=== PATIENT | female | born 1945 | race Caucasian/White ===

== ENCOUNTER → 2016-04-28 | Day surgery (SDC) | payer MEDICARE, OTHER ==
[~2016-04-28] MED LIST: ACETAMINOPHEN 1000 MG/100 ML VIAL IV ONE; ACETAMINOPHEN/HYDROcodone 325 MG/5 MG TAB ONE; ASPI1TAB69 PO; BENI40TA3 PO; BENI40TA30; BUPIVACAINE/EPINEPHRINE 0.25% PF 30 ML VIAL ONE; FLUT1SPR5 EACH NARE; FLUT1SPR9; ISOSULFAN BLUE 50 MG/5 ML VIAL SQ ONE; LACTATED RINGER'S 1000 ML INJ 1,000 ML ONE; LIDOCAINE 1%/EPINEPHrine 1:100,000 SOLN 30 ML VIAL ONE; MIDAZOLAM HCL 2 MG/2 ML VIAL ONE; NEXI40CA; NEXI40CA PO; NYST1000 SWISH-SWAL; NYST100010 SS; ONDANSETRON HCL 4 MG/2 ML VIAL IV PUSH ONE; PROPOFOL 200 MG/20 ML AMP IV ONE; SODIUM CHLOR 0.9% 250 ML BAG IV ONE; SODIUM CHLORIDE 0.9% INJ 10 ML ONE; VANCOMYCIN HCL 1000 MG VIAL ONE; VYTO10TA32; VYTO10TA8 PO; ceFAZolin INJ 1,000 MG VIAL ONE
--- NOTE | 2016-04-29 14:26 | MP ---
cc: CAMDEN AQUINO M.D., ZAFAR MD ZACHARIS, THEODOSSIS MD Corrected Copy: 06/05/16 DATE OF SURGERY: 04/28/2016. PREOPERATIVE DIAGNOSIS: 1. Soft tissue masses left antecubital fossa and base of right neck. 2. Invasive ductal carcinoma right breast. PROCEDURE PERFORMED: 1. Excision soft tissue mass left antecubital fossa 3 x 5 cm. 2. Excision soft tissue mass base of right neck 1 x 1 cm. 3. Excision sentinel lymph nodes right axilla x4. 4. Right simple mastectomy SURGEON: Camden Aquino MD. FAMILY PROGRAM SPECIALIST: Tre Cota MS-3. ESTIMATED BLOOD LOSS: 150 mL. FLUIDS: 950 mL crystalloid. COMPLICATIONS: None. DRAINS: Reliavac x1. SPECIMEN: Soft tissue masses x2 and right breast and sentinel lymph nodes x4 to pathology. DESCRIPTION OF THE PROCEDURE IN DETAIL: The patient was taken to the department of nuclear medicine where she underwent injection with technetium-99 sulfur colloid. She was taken back to the imaging center and was found to have areas that were marked by the radiologist. She was then taken to the operating room and placed on the operating table in the supine position. It should be noted that the patient had injection the afternoon before. The patient was then sterilely prepped and draped with the left antecubital fossa, right neck and right breast, all marked prior to going to the operating room and all of these were then prepped and draped. Time-out was taken confirming the correct patient, site and procedures to be performed. At this point, the left antecubital fossa was addressed first. A transverse incision was made directly over the mass. This was then dissected out with a combination of sharp dissection and electrocautery. A small antecubital vein was ligated and divided. The mass was completely excised and passed off the table. The wound was closed in two layers with interrupted 3-0 Vicryl suture and 5-0 PDS in a running subcuticular fashion. The wound was left open without a dressing until the end of the case. Attention was then turned to the base of the right neck. Incision was made superior to the supraclavicular region and dissection carried down to this area. Care was taken to avoid injuring the right external jugular vein. A small fatty pad of soft tissue was removed and this was submitted for specimen analysis. This wound was closed with interrupted 3-0 Vicryl suture and 5-0 PDS as well. Both wounds were left to air until the end of the procedure at which point Steri-Strips were placed on them. Attention was then turned to the breast. A Patey-type incision was then made including the nipple-areolar complex. The superior flap was created first and dissection was then carried out by pulling the breast downward off of the pectoralis muscle. The axilla was then examined and the Neoprobe was used to find the sentinel nodes in the axilla. A total of four lymph nodes were removed and passed off the table. When this had been completed, activity above background was not noted. All four nodes had substantial activity within them. The inferior skin flap was then created with electrocautery and the breast was then peeled in a medial to lateral fashion off of the chest wall. The specimen was then marked with silk sutures and passed off the table. The wound was then irrigated and all bleeding meticulously controlled with electrocautery. A Reliavac drain was brought out via an inferiorly based stab incision and fixed to the skin with a 3-0 nylon suture. The wound was then closed with interrupted 2-0 Vicryl suture and the skin itself closed with 5-0 PDS in a running subcuticular fashion. 30 mL of 0.25% Marcaine with epinephrine was injected into the drain and left to dwell for 30 minutes. The breast wound and the other soft tissue wounds were dressed with Steri-Strips as noted above. A Biopatch and Tegaderm was placed over the drain site. The patient was extubated and taken back to the recovery room in stable condition. Sponge, needle and instrument counts were reported be correct x2, the first time after the soft tissue masses were removed and the second time after the mastectomy was completed. The patient tolerated the procedure well. MD MADONNA Almazan/JCTashi /10:54 AM /2:16 PM CHRISTINA
== END | disposition home or self-care (01) ==
LOC: ESDC 06:42
PROVIDERS: ATTEND Surgery Trauma Surgery
DX: D05.11 Intraductal carcinoma in situ of right breast (principal); D17.22 Benign lipomatous neoplasm of skin and subcutaneous tissue of left arm; R22.1 Localized swelling, mass and lump, neck
CPT/HCPCS: 00300; 00400; 01610; 11421; 19303; 24071; 38525; 88305; 88307; 88309; J0131; J0690; J2250; J2405; J3010; J3370; J7050; J7120; 88304; Q9968

== ENCOUNTER → 2016-06-07 | Day surgery (SDC) | payer MEDICARE, OTHER ==
[~2016-06-07] MED LIST changes: -ACETAMINOPHEN 1000 MG/100 ML VIAL IV ONE; -ACETAMINOPHEN/HYDROcodone 325 MG/5 MG TAB ONE; +ACETAMINOPHEN/HYDROcodone 325 MG/5 MG TAB PO PRN; -BUPIVACAINE/EPINEPHRINE 0.25% PF 30 ML VIAL ONE; +CHLORHEXIDINE GLUCONATE 2 % 1 PACK (2 CLOTHS) TOPICAL PRN; +HEPARIN SODIUM - IV 10,000 UNITS/10 ML VIAL ONE; +INSULIN HUMAN REGULAR 1,000 UNITS/10 ML VIAL SQ PRN; -ISOSULFAN BLUE 50 MG/5 ML VIAL SQ ONE; -LACTATED RINGER'S 1000 ML INJ 1,000 ML ONE; +LACTATED RINGER'S 1000 ML IV PRN; +LIDOCAINE 1%/EPINEPHrine 1:100,000 SOLN 20 ML VIAL ONE; -LIDOCAINE 1%/EPINEPHrine 1:100,000 SOLN 30 ML VIAL ONE; +LIDOCAINE 1%/EPINEPHrine 1:100,000 SOLN 50 ML VIAL ONE; +METOPROLOL TARTRATE 25 MG TAB PO PRN; +MORPHINE SULFATE 4 MG/ML INJ IV PUSH PRN; -ONDANSETRON HCL 4 MG/2 ML VIAL IV PUSH ONE; +ONDANSETRON HCL 4 MG/2 ML VIAL IV PUSH PRN; +POVIDONE IODINE 5% (ANTISEPSIS KIT) 4 APPLICATIONS EACH NARE PRN; +SODIUM BICARBONATE 8.4% INJ 50 ML ONE; -SODIUM CHLOR 0.9% 250 ML BAG IV ONE; +SODIUM CHLORID 0.9% 500 ML IV PRN; +SODIUM CHLORIDE 0.9% 20 ML VIAL ONE; -SODIUM CHLORIDE 0.9% INJ 10 ML ONE; -VANCOMYCIN HCL 1000 MG VIAL ONE; +diphenhydrAMINE HCL 50 MG/ML VIAL IV ONE; +diphenhydrAMINE HCL 50 MG/ML VIAL ONE
[2016-06-07] MEDS: VANCOMYCIN HCL 1000 MG ON-CALL/NS 250 ML IV SCH ×4 (12:12→12:17)
[2016-06-07 12:13] VITALS: BP 169/85; PULSE 73; RESP 18; TEMP 98.5; O2SAT 98
--- NOTE | 2016-06-07 12:19 | EKG ---
Date Performed: 06/07/2016 Time Performed: 11:48:54 PTAGE: 71 years EKG: Sinus rhythm NORMAL ECG PREVIOUS TRACING : 03/03/2013 04.23 DOCTOR: Benjie Gutiérerz Interpretating Date/Time 06/07/2016 12:18:21
--- NOTE | 2016-06-07 15:39 | RADRPT ---
EXAM DATE/TIME: 06/07/2016 14:50 [facility] COMPARISON: CHEST SINGLE AP, March 02, 2013, 22:11. INDICATIONS : Infusaport insertion. MEDICAL HISTORY : carcinoma of breast SURGICAL HISTORY : Mastectomy, left. ENCOUNTER: Initial ACUITY: 1 day PAIN SCORE: 7/10 LOCATION: Right chest pain FINDINGS: Iiagtm-s-Vuay is in good position on the right without pneumothorax. The heart and pulmonary vascular ity are normal. The portion of the bony skeleton visualized is unremarkable. CONCLUSION: Support good position without pneumothorax. Ronny Alegre MD FACR on June 07, 2016 at 15:36 Board Certified Radiologist. This report was verified electronically.
[2016-06-07 16:00] VITALS: BP 161/78; PULSE 84; RESP 16; TEMP 97.9; O2SAT 97
--- NOTE | 2016-06-09 16:03 | MP ---
cc: MARGARITA AQUINO M.D., ZAFAR MD DATE OF SURGERY: 06/07/2016. PREOPERATIVE DIAGNOSIS: Invasive ductal carcinoma with need for IV chemotherapy. POSTOPERATIVE DIAGNOSIS: Invasive ductal carcinoma with need for IV chemotherapy. OPERATIVE PROCEDURE PERFORMED: Gqlyax-V-Fvnp placement with intraoperative use of fluoroscopy. SURGEON: Margarita Aquino MD. ANESTHESIA TIVA. ESTIMATED BLOOD LOSS: Less than 10 mL. FLUIDS: 600 mL crystalloid. COMPLICATIONS: None. DRAINS: None. SPECIMEN: None. DESCRIPTION OF THE PROCEDURE IN DETAIL: The patient was taken to the operating room and placed on the operating table in the supine position. After an adequate level of IV sedation was begun, the chest and neck were prepped and draped bilaterally. Time-out was taken confirming correct patient, site and procedure to be performed. Skin and subcutaneous tissue on the left subclavian region was infiltrated with local anesthetic. Multiple attempts were unsuccessful in accessing the left subclavian vein. At this point, the right side was infiltrated with local anesthetic and the right subclavian vein was accessed on the very first attempt. A guidewire was passed and seen under fluoroscopy to pass into the superior vena cava. A port pocket was then created inferior to this by infiltrating with local anesthetic, incising the skin, and creating a pocket with electrocautery. The catheter was brought through a short tunnel between the port pocket site and the percutaneous puncture site. An introducer and sheath were then passed over the guidewire and seen to smoothly course into the superior vena cava under fluoroscopy. The guidewire and introducer were removed and the catheter passed on the sheath. The sheath was peeled away the catheter withdrawn to a level such that the tip was in the superior vena cava. The catheter was then trimmed to size, attached the port and the hub was snapped in place. The port was fixed to the chest wall at two points with 2-0 Prolene suture. The port pocket was inspected and seen to be clean and dry. The percutaneous puncture site and port pocket were closed with interrupted 3-0 Vicryl suture and the skin closed at the port pocket with 5-0 PDS in a running subcuticular fashion. Both wounds were dressed with Steri-Strips. The patient was taken back to her room in stable condition. Sponge and needle counts were reported to be correct. Chest x-ray was ordered and is pending at this time. The patient tolerated the procedure well. MD MADONNA Almazan/BAKARI /3:56 PM /3:56 PM
== END | disposition home or self-care (01) ==
LOC: HSDC 11:11
PROVIDERS: ATTEND Surgery Trauma Surgery
DX: Z45.2 Encounter for adjustment and management of vascular access device (principal); D05.11 Intraductal carcinoma in situ of right breast; I10 Essential (primary) hypertension
CPT/HCPCS: 00532; 36561; 71010; 77001; 93005; C1788; J1200; J1644; J2250; J3010; J3370; J7050; J7120; J0690

== ENCOUNTER 2016-06-09 12:15 | Inpatient (IN) | payer MEDICARE, OTHER ==
[~2016-06-09] VITALS: Ht 157.5 cm; Wt 72.2 kg
[~2016-06-09 12:15] MED LIST changes: -ACETAMINOPHEN/HYDROcodone 325 MG/5 MG TAB PO PRN; -BENI40TA30; -CHLORHEXIDINE GLUCONATE 2 % 1 PACK (2 CLOTHS) TOPICAL PRN; -FLUT1SPR9; -HEPARIN SODIUM - IV 10,000 UNITS/10 ML VIAL ONE; -INSULIN HUMAN REGULAR 1,000 UNITS/10 ML VIAL SQ PRN; -LACTATED RINGER'S 1000 ML IV PRN; -LIDOCAINE 1%/EPINEPHrine 1:100,000 SOLN 20 ML VIAL ONE; -LIDOCAINE 1%/EPINEPHrine 1:100,000 SOLN 50 ML VIAL ONE; -METOPROLOL TARTRATE 25 MG TAB PO PRN; -MIDAZOLAM HCL 2 MG/2 ML VIAL ONE; -MORPHINE SULFATE 4 MG/ML INJ IV PUSH PRN; -NEXI40CA; -NYST1000 SWISH-SWAL; -NYST100010 SS; -ONDANSETRON HCL 4 MG/2 ML VIAL IV PUSH PRN; -POVIDONE IODINE 5% (ANTISEPSIS KIT) 4 APPLICATIONS EACH NARE PRN; -PROPOFOL 200 MG/20 ML AMP IV ONE; -SODIUM BICARBONATE 8.4% INJ 50 ML ONE; -SODIUM CHLORID 0.9% 500 ML IV PRN; -SODIUM CHLORIDE 0.9% 20 ML VIAL ONE; -VYTO10TA32; -ceFAZolin INJ 1,000 MG VIAL ONE; -diphenhydrAMINE HCL 50 MG/ML VIAL IV ONE; -diphenhydrAMINE HCL 50 MG/ML VIAL ONE
[2016-06-09 12:19] VITALS: BP 201/110; PULSE 88; RESP 24; TEMP 98.2; O2SAT 95
[2016-06-09 12:28] VITALS: PULSE 92; RESP 26; TEMP 97.9; O2SAT 92
[2016-06-09] MEDS ORDERED: MIDAZOLAM HCL 5 MG/ML VIAL (1 ML) ONE (12:42)
[2016-06-09] MEDS ORDERED: MIDAZOLAM HCL 5 MG/5 ML VIAL IV PUSH ONE ×2 (12:45)
[2016-06-09] MEDS ORDERED: LIDOCAINE 2%/EPINEPHrine 1:100,000 30ML MDV INFIL ONE (12:45)
--- NOTE | 2016-06-09 12:46 | PD ---
HPI Chief Complaint: Respiratory Symptoms Time Seen by Provider: 12:35 Travel History International Travel<30 days: No Contact w/Intl Traveler<30days: No Traveled to known affect area: No History of Present Illness HPI This is a 71-year-old female with a history of breast cancer, presents here for admission. The patient had a port placed yesterday. They initially tried with port in the left upper chest however were unsuccessful and placed on the right. Post procedure chest x-ray showed no pneumothorax at the time. The patient told her daughter that she was having difficulty breathing. The daughter who is a public affairs director listen to her lungs and found that she had diminished lung sounds in the left side. The patient was sent from urgent CT of the chest. Showed a large pneumothorax and left side. The patient was sent here by Dr. Aquino for chest tube placement and admission. PFSH Past Medical History Heart Rhythm Problems: No Cancer: Yes (L BREAST) Cardiac Catheterization: No Cardiovascular Problems: Yes (HTN) High Cholesterol: Yes Chemotherapy: Yes Congestive Heart Failure: No Diabetes: No Diminished Hearing: No Endocrine: No Gastrointestinal Disorders: Yes (REFLUX) GERD: Yes Genitourinary: No Hepatitis: No Hiatal Hernia: No Hypertension: Yes Immune Disorder: No Musculoskeletal: No Neurologic: No Psychiatric: No Reproductive: No Respiratory: Yes Immunizations Current: Yes Thyroid Disease: No Menopausal: Yes Past Surgical History Abdominal Surgery: Yes (APPENDECTOMY) AICD: No Appendectomy: Yes Cardiac Surgery: No Coronary Artery Bypass Graft: No Ear Surgery: No Endocrine Surgery: No Eye Surgery: No Genitourinary Surgery: No Gynecologic Surgery: No Joint Replacement: No Mastectomy: Yes Oral Surgery: No Pacemaker: No Thoracic Surgery: Yes Other Surgery: Yes Social History Alcohol Use: No Tobacco Use: No Substance Use: No Allergies-Medications (Allergen,Severity, Reaction): Coded Allergies: Penicillin (Verified Allergy, Intermediate, thrush, 06/07/16) Reported Meds & Prescriptions Reported Meds & Active Scripts Active Reported Aspirin 81 Mg Tabdr 81 Mg PO DAILY Benicar (Olmesartan) 40 Mg Tab 40 Mg PO DAILY Flonase Nasal [place] (Fluticasone Nasal [place]) 50 Mcg/Act [place] 50 Mcg EACH NARE BID Vytorin (Ezetimibe-Simvastatin) 10-20 Mg Tab 10-20 Tab PO HS Nexium (Esomeprazole DR) 40 Mg Capdr 40 Mg PO DAILY Review of Systems Except as stated in HPI: all other systems reviewed are Neg Cardiovascular: Positive: Chest Pain or Discomfort (left sided chest), No: Palpitations ( pain with inspiration) Respiratory: Positive: Shortness of Breath, No: Cough Gastrointestinal: No: Nausea, Abdominal Pain Neurologic: No: Weakness, Headache Physical Exam Narrative GENERAL: Well-nourished, well-developed patient. SKIN: Focused skin assessment warm/dry. HEAD: Normocephalic/atraumatic. EYES: No scleral icterus. No injection or drainage. NECK: Supple, trachea midline. CARDIOVASCULAR: Regular rate and rhythm without murmurs, gallops, or rubs. RESPIRATORY: Her sounds diminished on the left side. Right side had good breath sounds. GASTROINTESTINAL: Abdomen soft, non-tender, nondistended. MUSCULOSKELETAL: No cyanosis, or edema. Patient is status post lymph node ectomy in the bilateral axillary regions. Wounds appear clean dry and intact. NEUROLOGICAL: Awake and alert. Cranial nerves II through XII intact. Motor grossly within normal limits. Five out of 5 muscle strength in all muscle groups. Normal speech. Data Data Last Documented VS Vital Signs Date Time Temp Pulse Resp B/P Pulse Ox O2 Delivery O2 Flow Rate FiO2 06/09/16 12:28 97.9 92 26 92 06/09/16 12:19 201/110 Orders Lidocai-Epi 2%-1:100,000 Inj (Xylocaine- (06/09/16 12:45) Midazolam Inj (Versed Inj) (06/09/16 12:45) Admit Order (Ed Use Only) (06/09/16 12:40) Midazolam Inj (Versed Inj) (06/09/16 12:45) Mri Brain W&W/O Contrast (06/09/16 12:42) Midazolam Inj (Versed Inj) (06/09/16 12:42) MDM Medical Decision Making Medical Screen Exam Complete: Yes Emergency Medical Condition: Yes Differential Diagnosis Pneumothorax versus hemothorax versus pneumonia Narrative Course 71 year-old female with a breast cancer history, who is being prepared for chemotherapy, who presents with shortness of breath after having a port placed. The patient was noted to have a large left sided pneumothorax. She was sent here by Dr. Aquino who met her here and placed a left sided chest tube. The patient be admitted to the hospital. Dr. Aquino will be the admitting physician. Dr. Aquino successfully place the tube with no complications. Diagnosis Primary Impression: left sided pneumothorax Additional Impression: History of breast cancer Admitting Information Admitting Physician Requests: Admit Ishan Colindres MD Jun 09, 2016 12:46
[2016-06-09 13:00] VITALS: BP 124/57; PULSE 80; RESP 16; O2SAT 99
[2016-06-09] MEDS ORDERED: MORPHINE SULFATE 4 MG/ML INJ IV PUSH ONE (13:00)
[2016-06-09] MEDS ORDERED: NALOXONE HCL 0.4 MG/ML AMP IV PRN (13:15)
[2016-06-09] MEDS ORDERED: ACETAMINOPHEN/HYDROcodone 325 MG/5 MG TAB PO PRN (13:15)
[2016-06-09] MEDS ORDERED: ONDANSETRON HCL 4 MG/2 ML VIAL IV PRN (13:15)
[2016-06-09] MEDS ORDERED: Post-op Orders (for Pharmacy) MISC XX ONE (13:15)
[2016-06-09] MEDS ORDERED: SODIUM CHLORIDE 0.9% FLUSH 5 ML FLUSH IVF PRN (13:15)
[2016-06-09] MEDS ORDERED: MORPHINE SULFATE 4 MG/ML INJ IV PUSH PRN (13:15)
[2016-06-09] MEDS ORDERED: diphenhydrAMINE HCL 25 MG CAP PO PRN (13:15)
[2016-06-09] MEDS ORDERED: KETOROLAC TROMETHAMINE 30 MG/ML (IVP) VIAL IVP PRN (13:15)
[2016-06-09] MEDS: SODIUM CHLOR 0.9% 1000 ML INJ 1,000 ML IV SCH ×2 (13:32→23:45)
[2016-06-09] MEDS: ACETAMINOPHEN/HYDROcodone 325 MG/5 MG TAB PO PRN (13:41)
--- NOTE | 2016-06-09 14:17 | RADRPT ---
EXAM DATE/TIME: 06/09/2016 13:19 [facility] COMPARISON: FLUOROSCOPY FOR CV CATH PLCMT, June 07, 2016, 0:00. CHEST SINGLE AP, June 07, 2016, 14:50. INDICATIONS : Shortness of breath post port placement two days ago, chest tube placement. MEDICAL HISTORY : Carcinoma, breast. SURGICAL HISTORY : Left mastectomy ENCOUNTER: Subsequent ACUITY: 2 days PAIN SCORE: 7/10 LOCATION: Left upper chest FINDINGS: Chest tube is in place on the left without pneumothorax. Line is in good position on the right. Min imal parenchymal changes are seen in the left base CONCLUSION: There is no pneumothorax with chest tube placement in the left. Ronny Alegre MD FACR on June 09, 2016 at 13:38 Board Certified Radiologist. This report was verified electronically.
--- NOTE | 2016-06-09 14:28 | PD.PN.STU ---
Subjective Remarks 71 year-old [place] female with hx of surgical port placement for breast malignancy X 2 days ago presented to the [facility] ED with progressive shortness of breath, chest pain associated with deep breathing, and pallor. During port placement, there was an initial unsuccessful attempt to place the port in the left subclavicular region, which was followed by a successful right subclavicular port placement. Chest x-ray following the procedure was unremarkable. The patient's daughter has medical training and was able to detect decreased breath sounds in her mother's left upper lobe today. The patient contacted her GI physician, Dr. Yeh, who ordered a chest CT. Chest CT showed a left-sided pneumothorax, which prompted consultation of the patient' s general surgeon, Dr. Aquino. Past medical history is significant for left breast cancer X 6 years ago followed by unilateral left mastectomy. Right breast malignancy was diagnosed in April 2016, followed by right mastectomy X 1 month ago. Loni Costa, MS3 Objective Vitals Vital Signs Date Time Temp Pulse Resp B/P Pulse Ox O2 Delivery O2 Flow Rate FiO2 06/09/16 12:28 97.9 92 26 92 06/09/16 12:19 98.2 88 24 201/[address] reveals left pneumothorax Objective Remarks The patient appears to be an elderly woman in significant distress. She has increased work of breathing, pallor, severe pain, and decreased breath sounds in the left upper lobe. Procedures A small-bore catheter was inserted into the pleural space and attached to a negative pressure suction device. Medications and IVs Versed IV was administered in 2 pushed doses of 2.5 mg and 1 dose of 5 mg for anxiety Lidocaine-Epinephrine 2% 30 mL for pain at catheter site X 1. Morphine 4 mg IV push for pleuritic pain X 1. Toradol inj 30 mg q6h prn for pain. [place] 5/325 po q4h prn for pain. Morphine 2 mg IV q30min prn for severe pain Odansetron 4 mg IV q4h prn for nausea Benadryl 25 mg po q6h prn for itching Sodium chloride 1000 ml @ 100ml/hr IV q10h A/P Assessment and Plan The patient was likely suffering an iatrogenic left-sided pneumothorax secondary to port placement for chemotherapy administration. Small-bore needle catheterization was performed and attached to a negative pressure suction device without any complications. The proper site of entry was confirmed via visualized air bubbles, increased air movement on lung auscultation, and chest x-ray, which reveals complete resolution of the pneumothorax. The patient is now stable and breathing well without any supplemental oxygen. The etiology of the pneumothorax, along with the procedure and expectations were discussed with the patient and her family. The patient will be admitted to the hospital to assess for further complications over the nest 24-48 hours. The patient was advised to call Dr. Solis's office following hospital discharge to plan for chemotherapy treatment initiation shortly thereafter. The patient, her son, and her daughter understand the patient's condition and are in complete agreement with the plan of care. Discharge Planning The patient will be discharged home. Loni Costa M3 Jun 09, 2016 14:28
[2016-06-09 15:14] VITALS: BP 112/60; PULSE 80; RESP 18; O2SAT 98
[2016-06-09 15:40] LABS: FREE T3 3.08 PG/ML (2.18-3.98); FREE T4 1.56 NG/DL (0.76-1.46)
[2016-06-09 16:00] VITALS: BP 148/71; PULSE 76; RESP 18; TEMP 97; O2SAT 93
--- NOTE | 2016-06-09 18:15 | MH ---
cc: MARGARITA MOLINA MD DATE OF ADMISSION 06/09/2016 REASON FOR ADMISSION Pneumothorax. HISTORY OF PRESENT ILLNESS The patient is a 71-year-old female with a history of breast cancer who underwent right simple mastectomy with sentinel node biopsy and then required port placement for IV chemotherapy. She underwent this on Sunday and had uneventful placement. There was unsuccessful access on the left side and the port was placed on the right. Postoperative film demonstrated no evidence of pneumothorax. Over the past 48 hours, the patient has had increasing shortness of breath and we were notified this morning. The patient underwent CT of the chest which demonstrated a large pneumothorax on the left. The patient was seen in the emergency department for placement of thoracostomy tube. PAST MEDICAL HISTORY 1. 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 2. Hypertension, 3. Hypercholesterolemia, 4. GE reflux disease. PAST SURGICAL HISTORY 1. Appendectomy, 2. Bilateral mastectomy. SOCIAL HISTORY The patient does not smoke, drink or use other substances. ALLERGIES PENICILLIN - CAUSES THRUSH MEDICATIONS On admission, 1. Aspirin 81 mg q. day 2. Benicar 40 mg q. day. 3. Flonase each nare b.i.d. 4. Vytorin 10/20 p.o. q.h.s. 5. Nexium 40 mg daily. REVIEW OF SYSTEMS Negative except as indicated above. The patient is having shortness of breath and coughing as well as belching. PHYSICAL EXAMINATION GENERAL: A female. VITAL SIGNS: BP 192/82, pulse 88, respirations 24, temperature 98.2, 92% sat on nasal cannula. CHEST: Demonstrates decreased breath sounds on the left. CT was reviewed and demonstrates a large left pneumothorax. CARDIOVASCULAR: Regular rate and rhythm. ABDOMEN: Soft and nontender. Chest wall is healed bilaterally. There are Steri-Strips in place over the Btistv-D-Kajc site on the right. EXTREMITIES: Pulses are present. ASSESSMENT History of breast cancer and port placement with large pneumothorax on the left likely developing slowly over the last 48 hours. PLAN The patient will have a Cook catheter placed at the bedside immediately. I have discussed this with the patient and her daughter who were agreeable. Depending on findings, we will proceed accordingly. There is no evidence of hemothorax. Risks of the procedure were explained to the patient and her daughter including but not limited to bleeding, infection, need for placement of a larger or second tube, persistent pneumothorax with persistent air leak. I have discussed remedies consequences, alternatives and convalescence. They vocalized understanding and agree to proceed. MD MADONNA Almazan/ /4:37 PM /6:04 PM
[2016-06-09 20:00] VITALS: BP 157/74; PULSE 83; RESP 18; TEMP 96; O2SAT 97
[2016-06-09] MEDS: SODIUM CHLORIDE 0.9% FLUSH 5 ML FLUSH IVF SCH (21:52)
[2016-06-09] MEDS: ASPIRIN 81 MG CHEW TAB PO SCH (23:27)
[2016-06-09] MEDS: EZETIMIBE 10 MG TAB PO SCH (23:28)
[2016-06-09] MEDS: PRAVASTATIN SOD 40 MG TAB PO SCH (23:28)
[2016-06-09] MEDS: FLUTICASONE PROPIONATE 50 MCG/ACT 16 GM NASAL SPRAY NASAL SCH (23:29)
[2016-06-09] MEDS: LOSARTAN 50 MG TAB PO SCH (23:34)
[2016-06-09] MEDS: PANTOPRAZOLE SOD 40 MG DELAYED RELEASE TAB PO SCH (23:34)
[2016-06-10] VITALS (12 sets, daily range): BP systolic 119–194; BP diastolic 70–96; PULSE 50–85; RESP 17–24; TEMP 96.3–98.2; O2SAT 93–97
--- NOTE | 2016-06-10 05:08 | RADRPT ---
EXAM DATE/TIME: 06/10/2016 04:29 [facility] COMPARISON: CHEST SINGLE AP, June 07, 2016, 14:50. CHEST SINGLE AP, June 09, 2016, 13:19. INDICATIONS : Shortness of breath, possible pulmonary disease. MEDICAL HISTORY : Carcinoma, breast. SURGICAL HISTORY : Mastectomy, left. ENCOUNTER: Subsequent ACUITY: 2 days PAIN SCORE: 6/10 LOCATION: Left chest FINDINGS: There is a left-sided chest tube in place. No pneumothorax is seen. There is a CT compatible line in place from the right side. The heart size is normal. There is increased density at the medial bases b ilaterally. This may be related to atelectasis given the expiratory nature of the study CONCLUSION: Left chest tube without pneumothorax. Girish Cosme MD on June 10, 2016 at 5:04 Board Certified Radiologist. This report was verified electronically.
[2016-06-10] MEDS: PANTOPRAZOLE SOD 40 MG DELAYED RELEASE TAB PO SCH (05:36)
[2016-06-10] MEDS: ACETAMINOPHEN/HYDROcodone 325 MG/5 MG TAB PO PRN ×2 (06:44→11:51)
[2016-06-10] MEDS: FLUTICASONE PROPIONATE 50 MCG/ACT 16 GM NASAL SPRAY NASAL SCH ×2 (08:18→20:33)
[2016-06-10] MEDS: LOSARTAN 50 MG TAB PO SCH (08:18)
[2016-06-10] MEDS: ASPIRIN 81 MG CHEW TAB PO SCH (08:18)
[2016-06-10] MEDS: SODIUM CHLORIDE 0.9% FLUSH 5 ML FLUSH IVF SCH ×2 (08:19→20:32)
[2016-06-10] MEDS: SODIUM CHLOR 0.9% 1000 ML INJ 1,000 ML IV SCH (08:20)
--- NOTE | 2016-06-10 19:02 | RADRPT ---
EXAM DATE/TIME: 06/10/2016 18:51 [facility] COMPARISON: CHEST EXPIRATION ONLY, June 10, 2016, 4:29. INDICATIONS : Chest tube water sealed. Evaluate for pneumothorax. MEDICAL HISTORY : Carcinoma, breast SURGICAL HISTORY : Mastectomy, left. ENCOUNTER: Subsequent ACUITY: 1 day PAIN SCORE: 0/10 LOCATION: chest FINDINGS: The left chest tube remains in place. No evidence of pneumothorax. There some mild atelectasis in bot h lower lungs. Otherwise no significant changes compared to the prior study. No definite pleural effu sions. CONCLUSION: No evidence of pneumothorax. Phil Carr MD on June 10, 2016 at 19:00 Board Certified Radiologist. This report was verified electronically.
[2016-06-10] MEDS: PRAVASTATIN SOD 40 MG TAB PO SCH (20:33)
[2016-06-10] MEDS: EZETIMIBE 10 MG TAB PO SCH (20:33)
[2016-06-10] MEDS: ENALAPRILAT 1.25 MG/ML VIAL IV PUSH PRN (20:40)
--- NOTE | 2016-06-10 21:09 | HHI.PR ---
Subjective Subjective Notes Left chest sore when she takes a deep breath. Objective Vitals/I&O Vital Signs Date Time Temp Pulse Resp B/P Pulse Ox O2 Delivery O2 Flow Rate FiO2 06/10/16 18:01 96 Nasal Cannula 2.00 06/10/16 17:10 184/88 06/10/16 16:30 96.5 73 18 Lungs: Clear Abdomen: Non-distended Narrative Exam Chest tube output 20 ml; serous A/P Assessment and Plan PTX s/p [id number]-z-[id number] placement No PTX on water seal; will recheck CXR in AM, and if no PTX, remove tube and discharge home. Camden Aquino MD Jun 10, 2016 21:09
[2016-06-11] VITALS (8 sets, daily range): BP systolic 148–175; BP diastolic 65–76; PULSE 77–88; RESP 16–24; TEMP 96.1–97.6; O2SAT 95–99
[2016-06-11] MEDS: SODIUM CHLOR 0.9% 1000 ML INJ 1,000 ML IV SCH ×3 (05:11→20:30)
[2016-06-11] MEDS: PANTOPRAZOLE SOD 40 MG DELAYED RELEASE TAB PO SCH (05:14)
[2016-06-11] MEDS: ACETAMINOPHEN/HYDROcodone 325 MG/5 MG TAB PO PRN (05:48)
--- NOTE | 2016-06-11 06:45 | RADRPT ---
EXAM DATE/TIME: 06/11/2016 05:47 [facility] COMPARISON: CHEST EXPIRATION ONLY, June 10, 2016, 18:51. INDICATIONS : Shortness of breath, possible pulmonary disease. MEDICAL HISTORY : Carcinoma, breast. SURGICAL HISTORY : Mastectomy, left. ENCOUNTER: Subsequent ACUITY: 3 days PAIN SCORE: 4/10 LOCATION: Left chest FINDINGS: There is a left-sided chest tube in place. There is a mild left pneumothorax measuring 0.8 cm seen ov er the left apex. Mediastinal shift is not seen. The heart size is normal. There is increased density at the bases bilaterally being more prominent ri ght. There is a CT compatible Rwrgui-j-Prtc in place from the right subclavian approach. CONCLUSION: 1. Mild left pneumothorax with a left-sided chest tube. The pneumothorax measures 0.8 cm over the lef t apex. 2. Bibasilar areas of suspected atelectasis given the expiratory nature of the chest x-ray. The floor was called, Melissa the patient's nurse was informed of the small left pneumothorax. Girish Cosme MD on June 11, 2016 at 6:37 Board Certified Radiologist. This report was verified electronically.
[2016-06-11] MEDS: ASPIRIN 81 MG CHEW TAB PO SCH (08:42)
[2016-06-11] MEDS: FLUTICASONE PROPIONATE 50 MCG/ACT 16 GM NASAL SPRAY NASAL SCH ×2 (08:42→20:18)
[2016-06-11] MEDS: SODIUM CHLORIDE 0.9% FLUSH 5 ML FLUSH IVF SCH ×2 (08:43→20:18)
[2016-06-11] MEDS: LOSARTAN 50 MG TAB PO SCH (08:53)
--- NOTE | 2016-06-11 09:52 | HHI.PR ---
Subjective Subjective Notes no SOB small (new) PTX on CXR today, placed to suction with moderate air extracted Objective Vitals/I&O Vital Signs Date Time Temp Pulse Resp B/P Pulse Ox O2 Delivery O2 Flow Rate FiO2 06/11/16 08:49 99 Nasal Cannula 2.00 06/11/16 04:00 96.9 88 24 164/70 Cardiovascular: Regular Lungs: Clear Abdomen: Non-distended Extremities: Perfused A/P Assessment and Plan 71yo female with delayed left PTX after port, stable. CXR this AM with new PTX placed back to 20 of suction repeat CXR in AM no other c/o Sebastien Faulkner MD Jun 11, 2016 09:52
[2016-06-11] MEDS: EZETIMIBE 10 MG TAB PO SCH (20:18)
[2016-06-11] MEDS: PRAVASTATIN SOD 40 MG TAB PO SCH (20:18)
[2016-06-12 00:30] VITALS: BP 160/73; PULSE 73; RESP 17; TEMP 97; O2SAT 99
[2016-06-12] MEDS: PANTOPRAZOLE SOD 40 MG DELAYED RELEASE TAB PO SCH (04:12)
[2016-06-12 04:29] VITALS: BP 152/72; PULSE 74; RESP 17; TEMP 97.4; O2SAT 100
--- NOTE | 2016-06-12 06:14 | RADRPT ---
EXAM DATE/TIME: 06/12/2016 05:19 [facility] COMPARISON: CHEST EXPIRATION ONLY, June 11, 2016, 5:47. INDICATIONS : Short of breath, evaluate left pneumothorax and chest tube MEDICAL HISTORY : Carcinoma, breast. pneumothorax SURGICAL HISTORY : Mastectomy, left. chest tube ENCOUNTER: Subsequent ACUITY: 4 - 6 days PAIN SCORE: 3/10 LOCATION: Left chest FINDINGS: A single view of the chest demonstrates left-sided chest tube unchanged. Tiny left apical pneumothora x measuring 1-2 mm. Right-sided portacatheter again seen. Bibasilar subsegmental atelectasis. Osseou s structures are intact. CONCLUSION: Tiny left apical pneumothorax measuring 1-2 mm pleural separation, decreased in size from previous st udy. Bibasilar atelectasis. Sarwat Saunders MD on June 12, 2016 at 6:11 Board Certified Radiologist. This report was verified electronically.
[2016-06-12 07:37] VITALS: BP 173/80; PULSE 78; RESP 17; TEMP 96.2; O2SAT 98
[2016-06-12] MEDS: FLUTICASONE PROPIONATE 50 MCG/ACT 16 GM NASAL SPRAY NASAL SCH ×3 (09:00→21:14)
[2016-06-12] MEDS: LOSARTAN 50 MG TAB PO SCH (09:00)
[2016-06-12] MEDS: ASPIRIN 81 MG CHEW TAB PO SCH (09:28)
[2016-06-12] MEDS: SODIUM CHLORIDE 0.9% FLUSH 5 ML FLUSH IVF SCH ×2 (09:28→21:00)
[2016-06-12 11:28] VITALS: BP 163/74; PULSE 86; RESP 17; TEMP 97.1; O2SAT 97
[2016-06-12 15:22] VITALS: BP 168/75; PULSE 86; RESP 17; TEMP 96.9; O2SAT 98
--- NOTE | 2016-06-12 17:15 | HHI.PR ---
Subjective Subjective Notes Resting in bed Eager to get chest tube out if ready Objective Vitals/I&O Vital Signs Date Time Temp Pulse Resp B/P Pulse Ox O2 Delivery O2 Flow Rate FiO2 06/12/16 07:37 96.2 78 17 173/80 98 06/11/16 20:45 Nasal Cannula 2.00 Cardiovascular: Regular Lungs: Clear Abdomen: Non-distended, Non-tender Extremities: No edema Narrative Exam LEFT sided chest tube in place to -20 cm of suction A/P Assessment and Plan 71 year old female with delayed left PTX after port, stable. -CXR this morning shows small apical 1-2 mm PTX -Leave to -20 cm of suction -Repeat CXR in AM -Regular diet -Pain control Attending Note - Dr. Aquino Chest CTA; minimal output from CT Leave on suction x 24 hrs Discussed with patient and sister, son The exam, history, and the medical decision-making described in the above note were completed with the assistance of the mid-level provider. I reviewed and agree with the findings presented. I attest that I had a [id number] encounter with the patient on the same day, and personally performed and documented my assessment and findings in the medical record. Susan Jacome Jun 12, 2016 17:15 Camden Aquino MD Jun 13, 2016 19:30
[2016-06-12 20:50] VITALS: BP 185/99; PULSE 85; RESP 17; TEMP 96.8; O2SAT 98
[2016-06-12] MEDS: EZETIMIBE 10 MG TAB PO SCH ×2 (21:00→21:14)
[2016-06-12] MEDS: PRAVASTATIN SOD 40 MG TAB PO SCH ×2 (21:00→21:14)
[2016-06-12] MEDS: SODIUM CHLOR 0.9% 1000 ML INJ 1,000 ML IV SCH (21:11)
[2016-06-12] MEDS: ENALAPRILAT 1.25 MG/ML VIAL IV PUSH PRN (21:18)
[2016-06-12] MEDS: ACETAMINOPHEN/HYDROcodone 325 MG/5 MG TAB PO PRN (21:22)
[2016-06-13 00:50] VITALS: BP 134/68; PULSE 69; RESP 17; TEMP 97; O2SAT 97
[2016-06-13] MEDS: SODIUM CHLOR 0.9% 1000 ML INJ 1,000 ML IV SCH ×3 (04:45→20:29)
[2016-06-13] MEDS: PANTOPRAZOLE SOD 40 MG DELAYED RELEASE TAB PO SCH ×2 (05:44→20:29)
--- NOTE | 2016-06-13 07:08 | RADRPT ---
EXAM DATE/TIME: 06/13/2016 06:25 [facility] COMPARISON: CHEST SINGLE AP, June 12, 2016, 5:19. INDICATIONS : Short of breath, evaluate left pneumothorax and chest tube MEDICAL HISTORY : Carcinoma, breast. pneumothorax SURGICAL HISTORY : Mastectomy, left. ENCOUNTER: Subsequent ACUITY: 4 - 6 days PAIN SCORE: 110 LOCATION: Left chest FINDINGS: Chest tube is present on the left side. Right subclavian [id number]-[id number] is present with tip overlappin g the expected region of the SVC. No definite pneumothorax is seen for technique. Slight perivascular atelectasis and infiltrate is seen bilaterally not significantly changed worse in the left lung base . CONCLUSION: No pneumothorax and otherwise not changed. Haydee Max MD on June 13, 2016 at 7:05 Board Certified Radiologist. This report was verified electronically.
[2016-06-13] MEDS: FLUTICASONE PROPIONATE 50 MCG/ACT 16 GM NASAL SPRAY NASAL SCH ×2 (07:43→20:28)
[2016-06-13] MEDS: LOSARTAN 50 MG TAB PO SCH (07:43)
[2016-06-13 08:10] VITALS: BP 146/74; PULSE 73; RESP 16; TEMP 98; O2SAT 99
[2016-06-13] MEDS: SODIUM CHLORIDE 0.9% FLUSH 5 ML FLUSH IVF SCH ×2 (09:28→20:28)
[2016-06-13] MEDS: ASPIRIN 81 MG CHEW TAB PO SCH (09:28)
[2016-06-13 11:33] VITALS: BP 145/67; PULSE 86; RESP 16; TEMP 97.3; O2SAT 96
--- NOTE | 2016-06-13 16:37 | RADRPT ---
EXAM DATE/TIME: 06/13/2016 16:08 [facility] COMPARISON: CHEST SINGLE AP, June 13, 2016, 6:25. INDICATIONS : Short of breath, evaluate left side pneumothorax and chest tube MEDICAL HISTORY : Carcinoma, breast. SURGICAL HISTORY : Mastectomy, left. ENCOUNTER: Subsequent ACUITY: 4 - 6 days PAIN SCORE: 1/10 LOCATION: Left chest FINDINGS: There is a left sided chest tube noted in the distal coil of the left lung apex. I do not see a pneum othorax. A right-sided port catheter tip is noted overlying the SVC. There is cardiomegaly. The lungs are clear. CONCLUSION: No evidence for pneumothorax. Juan Daniel Weaver MD on June 13, 2016 at 16:35 Board Certified Radiologist. This report was verified electronically.
[2016-06-13 16:52] VITALS: BP 167/78; PULSE 85; RESP 16; TEMP 97.9; O2SAT 97
--- NOTE | 2016-06-13 17:23 | HHI.PR ---
Subjective Subjective Notes Up to chair Very thankful for the care she has received on 6N Objective Vitals/I&O Vital Signs Date Time Temp Pulse Resp B/P Pulse Ox O2 Delivery O2 Flow Rate FiO2 06/13/16 16:52 97.9 85 16 167/78 97 06/11/16 20:45 Nasal Cannula 2.00 Cardiovascular: Regular Lungs: Clear Abdomen: Non-distended, Non-tender Extremities: No edema Narrative Exam LEFT sided chest tube in place to water seal A/P Assessment and Plan 71 year old female with delayed left PTX after port, stable. -CXR this morning shows no PTX -Place to water seal -Repeat CXR in AM ---if lung continues to stay fully inflated will plan to DC pigtail -Regular diet -Pain control Attending Note - Dr. Aquino Chest CTA; CT output serous Keep on water seal until AM and repeat CXR As above The exam, history, and the medical decision-making described in the above note were completed with the assistance of the mid-level provider. I reviewed and agree with the findings presented. I attest that I had a [id number] encounter with the patient on the same day, and personally performed and documented my assessment and findings in the medical record. Susan Jacome Jun 13, 2016 17:23 Camden Aquino MD Jun 13, 2016 19:32
[2016-06-13 19:24] VITALS: BP 170/76; PULSE 88; RESP 16; TEMP 98.8; O2SAT 98
[2016-06-13] MEDS: EZETIMIBE 10 MG TAB PO SCH (20:28)
[2016-06-13] MEDS: PRAVASTATIN SOD 40 MG TAB PO SCH (20:28)
[2016-06-13] MEDS: ACETAMINOPHEN/HYDROcodone 325 MG/5 MG TAB PO PRN (21:39)
[2016-06-14 00:40] VITALS: BP 134/65; PULSE 77; RESP 17; TEMP 97; O2SAT 98
[2016-06-14 07:42] VITALS: BP 151/75; PULSE 77; RESP 16; TEMP 97.6; O2SAT 98
--- NOTE | 2016-06-14 07:44 | RADRPT ---
EXAM DATE/TIME: 06/14/2016 06:42 [facility] COMPARISON: CHEST SINGLE AP, June 13, 2016, 16:08. INDICATIONS : Pneumothorax. MEDICAL HISTORY : Carcinoma, breast. SURGICAL HISTORY : Mastectomy, left. Injection port, right. Chest tube, left. ENCOUNTER: Subsequent ACUITY: 1 week PAIN SCORE: 1/10 LOCATION: Left chest FINDINGS: Right chest port is stable in position. Left apical pigtail thoracostomy tube is stable. There is no evidence of pneumothorax. Minimal streaky bibasilar parenchymal opacity persists, unchanged. Cardiac contours are stable CONCLUSION: No pneumothorax Girish Lynn MD on June 14, 2016 at 7:40 Board Certified Radiologist. This report was verified electronically.
[2016-06-14] MEDS: LOSARTAN 50 MG TAB PO SCH (09:00)
[2016-06-14] MEDS: FLUTICASONE PROPIONATE 50 MCG/ACT 16 GM NASAL SPRAY NASAL SCH (09:00)
[2016-06-14] MEDS: SODIUM CHLORIDE 0.9% FLUSH 5 ML FLUSH IVF SCH (09:00)
[2016-06-14] MEDS: ASPIRIN 81 MG CHEW TAB PO SCH (09:55)
--- NOTE | 2016-06-14 10:19 | RADRPT ---
EXAM DATE/TIME: 06/14/2016 10:06 [facility] COMPARISON: CHEST EXPIRATION ONLY, June 11, 2016, 5:47. INDICATIONS : Evaluate for pneumothorax post chest tube reomval. MEDICAL HISTORY : Carcinoma, breast. SURGICAL HISTORY : Mastectomy, left. ENCOUNTER: Subsequent ACUITY: 4 - 6 days PAIN SCORE: 0/10 LOCATION: Bilateral chest FINDINGS: Right-sided port catheter is present as before. The lungs are clear there is a left-sided chest tube has been removed. A discrete pneumothorax is not seen. Heart size normal. CONCLUSION: Chest tube removal. A discrete pneumothorax is not visualized. Juan Daniel Weaver MD on June 14, 2016 at 10:16 Board Certified Radiologist. This report was verified electronically.
[2016-06-14 12:05] VITALS: BP 135/82; PULSE 74; RESP 16; TEMP 97.2; O2SAT 97
[2016-06-14 16:00] VITALS: BP 153/82; PULSE 92; RESP 16; TEMP 96.5; O2SAT 99
--- NOTE | 2016-06-27 15:38 | HHI.DS ---
Discharge Summary Admission Date Jun 09, 2016 at 12:42 Discharge Date: Jun 14, 2016 Admitting Diagnosis left pneumothorax, breast cancer by history Brief History 71 year old female with delayed left PTX after port placement. The patient was brought to the ED and Dr. Aquino placed a pigtail chest tube catheter. PE at Discharge Alert and awake; pleasant Resp: CTAB Cardio: RRR Abd : soft non tender LEFT sided chest tube removed by Dr. Aquino. Hospital Course 71 year old female with delayed left PTX after port placement. The patient had a small pigtail chest tube catheter placed by Dr. Aquino. The PTX resolved and the chest tube was successfully removed with a stable chest XR status post removal of chest tube. The patient was DCed home and will follow up with Dr. Aquino. Pt Condition on Discharge: Good Discharge Disposition: Discharge Home Discharge Instructions DIET: Follow Instructions for: As Tolerated, No Restrictions Activities you can perform: Shower Only-No Bath Activities to Avoid: Strenuous Activity Susan Jacome Jun 27, 2016 15:38
== END 2016-06-14 17:01 | disposition home or self-care (01) | DRG 201 ==
LOC: NEPE 12:15 → NEDA 12:42 → HOCA 15:35 → N06A 06-10 06:26
PROVIDERS: ADMIT Surgery Trauma Surgery; ATTEND Surgery Trauma Surgery
PROC: 05H533Z Insertion of Infusion Device into Right Subclavian Vein, Percutaneous Approach (ICD-10-PCS; principal; 2016-06-07)
PROC: 0W9B30Z Drainage of Left Pleural Cavity with Drainage Device, Percutaneous Approach (ICD-10-PCS; 2016-06-09)
DX: J95.811 Postprocedural pneumothorax (principal); I10 Essential (primary) hypertension; D05.11 Intraductal carcinoma in situ of right breast; E78.00 Pure hypercholesterolemia, unspecified; K21.9 Gastro-esophageal reflux disease without esophagitis; F41.9 Anxiety disorder, unspecified; Z90.13 Acquired absence of bilateral breasts and nipples
CPT/HCPCS: 71010; 77001; 84439; 84443; 84481; 93005; 94150; C1729; C1788; J1200; J1644; J2250; J2270; J3010; J3370; J7030; J7050; J7120